=== PATIENT | female | born 1995 | race Caucasian/White ===

== ENCOUNTER 2016-10-13 09:58 | Emergency (ER) | payer MEDICAID ==
[2016-10-13 10:35] LABS: Bilirubin Negative (Negative); Blood, Urine Negative (Negative); Clarity Clear (Clear); Glucose, Urine (Dipstick) Negative (Negative); Leukocyte Negative (Negative); Nitrite Negative (Negative); Protein, Urine (Dipstick) Negative (Neg-Trace); Urobilinogen 0.2 mg/dL (0.2-1.0); pH, Urine 6.5 (5.0-9.0)
== END 2016-10-13 10:46 | disposition home or self-care (01) ==
LOC: BURERS 09:58
DX: J01.90 Acute sinusitis, unspecified (principal); R10.9 Unspecified abdominal pain
CPT/HCPCS: 81003; 87081; 87430; 99283

== ENCOUNTER 2017-06-02 13:11 | Emergency (ER) | payer MEDICAID, OTHER ==
[2017-06-02] MEDS ORDERED: Ondansetron HCl/PF 4 MG/2 ML Vial ONE (13:28)
[2017-06-02 13:34] LABS: #Basophils 0.1 thou/uL (0.0-0.2); #Eosinphils 0.1 thou/uL (0.0-0.7); #Lymphocytes 1.2 thou/uL (1.20-3.40); #Monocytes 0.3 thou/uL (0.11-0.59); #Neutrophils 4.9 thou/uL (1.40-6.50); %Basophils 0.9 % (0.0-1.0); %Eosinophils 1.1 % (0.0-10.0); %Lymphocytes 17.9 % (21.0-51.0); %Monocytes 5.2 % (0.0-10.0); %Neutrophils 74.9 % (42.0-75.0); Hemoglobin 14.8 g/dL (12.0-16.0); Mean Corpuscular HGB CONC 32.3 g/dL (32.0-36.0); Mean Corpuscular Hemoglobin 28.1 pg (27.0-31.0); Mean Platelet Volume 7.9 fL (7.4-10.4); Platelet Count 190 thou/uL (130-400); RBC Distribution Width 11.6 % (11.5-14.5); Red Blood Cell (RBC) Count 5.28 mill/uL (4.20-5.40); White Blood Cell (WBC) Count 6.5 thou/uL (4.8-10.8)
[2017-06-02 13:43] LABS: Bilirubin Small (Negative); Blood, Urine Negative (Negative); Clarity Cloudy (Clear); Glucose, Urine (Dipstick) Negative (Negative); Leukocyte Negative (Negative); Nitrite Negative (Negative); Protein, Urine (Dipstick) Trace mg/dL (Neg-Trace); Specific Gravity, Urine 1.015 (1.005-1.030); Urobilinogen 0.2 mg/dL (0.2-1.0)
[2017-06-02 13:50] LABS: ALT (SGPT) 16 U/L (8-55); AST (SGOT) 19 U/L (5-34); Albumin 4.6 g/dL (3.5-5.0); Alkaline Phosphatase 92 U/L (40-150); Anion Gap 14 mmol/L (10-20); BUN (Urea Nitrogen) 12 mg/dL (7.0-18.7); Bilirubin, Total 0.8 mg/dL (0.2-1.2); Calc. Creatinine Clearance 0 mL/min (70-130); Calcium 9.8 mg/dL (7.8-10.44); Carbon Dioxide 23 mmol/L (22-29); Chloride 108 mmol/L (98-107); Estimated GFR-MDRD Greater than 90; Globulin 3.1 g/dL (2.4-3.5); Glucose 112 mg/dL (70-105); Potassium 3.7 mmol/L (3.5-5.1); Protein, Total 7.7 g/dL (6.0-8.3); Sodium 141 mmol/L (136-145)
[2017-06-02 13:53] LABS: Amphetamine Not Detected (NotDetected); Cocaine Metabolite Screen Not Detected (NotDetected); Methamphetamine Not Detected (NotDetected); Opiate Screen Not Detected (NotDetected); Phencyclidine (PCP) Not Detected (NotDetected); THC/Cannabinoid Screen Detected (NotDetected)
[2017-06-02 13:54] LABS: Barbiturates Screen Not Detected (NotDetected); Benzodiazepine Screen Detected (NotDetected); Medtox Control Line Valid? VALID (VALID); Methadone Not Detected (NotDetected); Oxycodone Screen Not Detected (NotDetected); Tricyclic Screen Not Detected (NotDetected)
== END 2017-06-02 14:10 | disposition home or self-care (01) ==
LOC: BURERS 13:11
DX: K52.9 Noninfective gastroenteritis and colitis, unspecified (principal); G43.909 Migraine, unspecified, not intractable, without status migrainosus
CPT/HCPCS: 80053; 80306; 81003; 85025; 96361; 96374; J2405

== ENCOUNTER 2017-07-06 18:26 | Emergency (ER) | payer MEDICAID, OTHER ==
[2017-07-06 18:48] LABS: Bilirubin Negative (Negative); Blood, Urine Negative (Negative); Clarity Clear (Clear); Glucose, Urine (Dipstick) Negative (Negative); Leukocyte Trace (Negative); Nitrite Negative (Negative); Protein, Urine (Dipstick) Negative (Neg-Trace); Urobilinogen 0.2 mg/dL (0.2-1.0)
[2017-07-06 18:51] LABS: Pregnancy Test - Urine (BHCG) Negative (Negative); Pregu Control Background? CLEAR/WHITE (CLR/WHITE); Pregu Control Bar Appear? YES (CONTROL BAR)
[2017-07-06 18:52] LABS: Bacteria/HPF Rare-Few HPF (None Seen); RBC/HPF 0-3 HPF (0-3); Squamous Epithelial 0-3 HPF (0-3); WBC/HPF 0-3 HPF (0-3)
== END 2017-07-06 19:29 | disposition home or self-care (01) ==
LOC: BURERS 18:26
DX: J11.1 Influenza due to unidentified influenza virus with other respiratory manifestations (principal)
CPT/HCPCS: 81003; 81015; 81025; 99283

== ENCOUNTER 2018-12-23 12:56 | Emergency (ER) | payer OTHER ==
[2018-12-23 13:21] LABS: Clarity Clear (Clear)
[2018-12-23 13:22] LABS: Bilirubin Negative (Negative); Blood, Urine Negative (Negative); Glucose, Urine (Dipstick) Negative (Negative); Leukocyte Negative (Negative); Nitrite Negative (Negative); Pregnancy Test - Urine (BHCG) Negative (Negative); Pregu Control Background? CLEAR/WHITE (CLR/WHITE); Pregu Control Bar Appear? YES (CONTROL BAR); Protein, Urine (Dipstick) Negative (Neg-Trace); Urobilinogen 0.2 mg/dL (Less than 2)
== END 2018-12-23 13:30 | disposition home or self-care (01) ==
LOC: BURERS 12:56
DX: M62.830 Muscle spasm of back (principal)
CPT/HCPCS: 81003; 81025; 99284

== ENCOUNTER 2019-06-09 15:50 | Emergency (ER) | payer OTHER ==
[2019-06-09 16:40] LABS: Bilirubin Negative (Negative); Blood, Urine Negative (Negative); Clarity Clear (Clear); Glucose, Urine (Dipstick) Negative (Negative); Leukocyte Trace (Negative); Nitrite Negative (Negative); Protein, Urine (Dipstick) Negative (Neg-Trace)
[2019-06-09 16:41] LABS: Pregnancy Test - Urine (BHCG) POSITIVE (Negative); Pregu Control Background? CLEAR/WHITE (CLR/WHITE); Pregu Control Bar Appear? YES (CONTROL BAR); Specific Gravity 1.015 (1.002-1.036)
[2019-06-09 16:49] LABS: RBC/HPF None Seen HPF (0-3); Squamous Epithelial 0-3 HPF (0-3); WBC/HPF 0-3 HPF (0-3)
[2019-06-09 16:50] LABS: Bacteria/HPF Rare-Few HPF (None Seen)
[2019-06-09] MEDS ORDERED: Ondansetron ODT 4 MG TAB ONE (17:46)
[2019-06-13 00:38] LABS: Chlamydia by PCR Not Detected (NotDetected); GC by PCR Not Detected (NotDetected)
== END 2019-06-09 17:45 | disposition short-term general hospital (02) ==
LOC: BURERS 15:50
DX: O99.89 Other specified diseases and conditions complicating pregnancy, childbirth and the puerperium (principal); R10.30 Lower abdominal pain, unspecified; Z3A.01 Less than 8 weeks gestation of pregnancy
CPT/HCPCS: 36415; 81003; 81015; 81025; 84702; 87480; 87491; 87510; 87591; 87660; 99284; Q0162

== ENCOUNTER 2020-01-04 21:12 | Emergency (ER) | payer OTHER ==
[2020-01-04] MEDS ORDERED: Ibuprofen 200 MG TAB ONE (21:33)
[2020-01-04] MEDS ORDERED: Ondansetron ODT 4 MG TAB ONE (21:33)
[2020-01-04 21:42] LABS: Bilirubin Negative (Negative); Blood, Urine Large (Negative); Clarity Slightly Cloudy (Clear); Glucose, Urine (Dipstick) Negative (Negative); Ketone, Urine Negative (Negative); Leukocyte Trace (Negative); Nitrite Negative (Negative); Protein, Urine (Dipstick) Negative (Neg-Trace); Urobilinogen 0.2 mg/dL (Less than 2); pH, Urine 5.5 (5.0-9.0)
[2020-01-04 21:48] LABS: Pregnancy Test - Urine (BHCG) Negative (Negative)
[2020-01-04 21:50] LABS: Specific Gravity, Urine 1.024 (1.002-1.036)
[2020-01-04 21:52] LABS: Pregu Control Background? CLEAR/WHITE (CLR/WHITE); Pregu Control Bar Appear? YES (CONTROL BAR); Specific Gravity 1.024 (1.002-1.036)
[2020-01-04 21:57] LABS: Bacteria/HPF 1+ HPF (None Seen)
[2020-01-04] MEDS ORDERED: Dexamethasone 4 MG TAB ONE (22:28)
[2020-01-04] MEDS ORDERED: Cephalexin 250 MG CAP ONE (22:28)
--- NOTE | 2020-01-05 07:02 | RAD ---
CHEST 2 VIEWS: Date: 01/04/2020 Comparison is made with an 04/30/2016 study. The heart is normal in size. There are no major lobar infiltrates or effusions. The mediastinum appea rs normal. IMPRESSION: No acute thoracic finding. POS: HOME
[2020-01-06 11:33] LABS: SARS-CoV-2 MS2 Positive; SARS-CoV-2 N Gene Negative; SARS-CoV-2 S Gene Negative; SARS-CoV-2 by NAA Not Detected (NotDetected); SARS-CoV-2 orf1ab Negative
== END 2020-01-04 22:35 | disposition home or self-care (01) ==
LOC: BURERS 21:12
DX: N30.01 Acute cystitis with hematuria (principal); J02.9 Acute pharyngitis, unspecified; R05 Cough; R11.2 Nausea with vomiting, unspecified; R53.83 Other fatigue; R51 Headache; Z20.828 Contact with and (suspected) exposure to other viral communicable diseases
CPT/HCPCS: 71046; 81003; 81015; 81025; 87081; 87430; 87635; 87804; J8540; Q0162; U0003

== ENCOUNTER 2020-04-02 13:59 | Emergency (ER) | payer OTHER ==
[2020-04-04 10:36] LABS: SARS-CoV-2 MS2 Positive; SARS-CoV-2 N Gene Negative; SARS-CoV-2 S Gene Negative; SARS-CoV-2 by NAA Not Detected (NotDetected); SARS-CoV-2 orf1ab Negative
== END 2020-04-02 15:08 | disposition home or self-care (01) ==
LOC: BURERS 13:59
DX: J06.9 Acute upper respiratory infection, unspecified (principal); Z20.828 Contact with and (suspected) exposure to other viral communicable diseases
CPT/HCPCS: 87635; 87804; 99283; U0003

== ENCOUNTER 2020-08-04 12:40 | Emergency (ER) | payer OTHER ==
[2020-08-04 13:20] LABS: Bilirubin Negative (Negative); Blood, Urine Negative (Negative); Clarity Clear (Clear); Glucose, Urine (Dipstick) Negative (Negative); Ketone, Urine Negative (Negative); Leukocyte Negative (Negative); Nitrite Negative (Negative); Protein, Urine (Dipstick) Negative (Neg-Trace); Specific Gravity, Urine 1.025 (1.005-1.030); Urobilinogen 0.2 mg/dL (Less than 2)
[2020-08-04 13:21] LABS: Pregnancy Test - Urine (BHCG) Negative (Negative)
[2020-08-04 13:22] LABS: Pregu Control Background? CLEAR/WHITE (CLR/WHITE); Pregu Control Bar Appear? YES (CONTROL BAR); Specific Gravity 1.025 (1.002-1.036)
[2020-08-04] MEDS ORDERED: Lidocaine 1% PF 5 ML VIAL ONE (13:32)
[2020-08-04] MEDS ORDERED: cefTRIAXone\\ROCEPHIN 500 MG VIAL ONE (13:32)
== END 2020-08-04 13:37 | disposition home or self-care (01) ==
LOC: BURERS 12:40
DX: N72 Inflammatory disease of cervix uteri (principal)
CPT/HCPCS: 81003; 81025; 87480; 87491; 87510; 87591; 87660; 96372; 99283; J0696

== ENCOUNTER 2020-09-18 01:55 | Emergency (ER) | payer OTHER ==
[2020-09-18] MEDS ORDERED: diphenhydrAMINE 25 MG CAP ONE (02:19)
== END 2020-09-18 02:25 | disposition home or self-care (01) ==
LOC: BURERS 01:55
DX: F41.9 Anxiety disorder, unspecified (principal)
CPT/HCPCS: 99281; Q0163

== ENCOUNTER 2020-10-29 21:31 | Emergency (ER) | payer OTHER ==
[2020-10-29] MEDS ORDERED: Ondansetron ODT 4 MG TAB ONE (21:49)
[2020-10-29 21:50] LABS: Bilirubin Negative (Negative); Blood, Urine Negative (Negative); Clarity Clear (Clear); Glucose, Urine (Dipstick) Negative (Negative); Ketone, Urine Negative (Negative); Leukocyte Negative (Negative); Nitrite Negative (Negative); Protein, Urine (Dipstick) 30 mg/dL (Neg-Trace); Specific Gravity, Urine 1.015 (1.005-1.030); pH, Urine 8.5 (5.0-9.0)
[2020-10-29 21:51] LABS: Bacteria/HPF None Seen HPF (None Seen); Mucous/LPF Rare LPF (<2+); RBC/HPF None Seen HPF (0-3); Squamous Epithelial 0-3 HPF (0-3); WBC/HPF None Seen HPF (0-3)
[2020-10-29 21:58] LABS: Pregnancy Test - Urine (BHCG) Negative (Negative); Pregu Control Background? CLEAR/WHITE (CLR/WHITE); Pregu Control Bar Appear? YES (CONTROL BAR); Specific Gravity 1.015 (1.002-1.036)
[2020-10-29] MEDS ORDERED: traMADol HCl 50 MG TAB ONE (22:34)
[2020-10-29] MEDS ORDERED: Ibuprofen 800 MG TAB ONE (22:34)
== END 2020-10-29 22:39 | disposition home or self-care (01) ==
LOC: BURERS 21:31
DX: M54.5 Low back pain (principal)
CPT/HCPCS: 74176; 81003; 81015; 81025; Q0162

== ENCOUNTER 2021-01-12 10:13 | Emergency (ER) | payer OTHER ==
[2021-01-12] MEDS ORDERED: HYDROcodone/Acetaminophen 5/325 mg Tablet ONE (12:45)
[2021-01-12] MEDS ORDERED: predniSONE 20 MG TAB ONE (12:45)
[2021-01-12 20:56] LABS: SARS-CoV-2 PCR by NAA Not Detected (NotDetected)
== END 2021-01-12 12:52 | disposition home or self-care (01) ==
LOC: BURERS 10:13
DX: B34.9 Viral infection, unspecified (principal); Z20.822 Contact with and (suspected) exposure to COVID-19; Z87.440 Personal history of urinary (tract) infections
CPT/HCPCS: 71046; 87804; J7512; U0003; U0005

== ENCOUNTER 2021-01-19 19:19 | Emergency (ER) | payer OTHER ==
[2021-01-19] MEDS ORDERED: Promethazine 25 MG TAB ONE (20:36)
[2021-01-19 22:07] LABS: #Basophils 0.1 thou/uL (0.0-0.2); #Eosinphils 0.1 thou/uL (0.0-0.7); #Lymphocytes 1.9 thou/uL (1.20-3.40); #Monocytes 0.5 thou/uL (0.11-0.59); #Neutrophils 4.7 thou/uL (1.40-6.50); %Eosinophils 0.9 % (0.0-10.0); %Lymphocytes 26.1 % (21.0-51.0); %Monocytes 7.5 % (0.0-10.0); %Neutrophils 64.5 % (42.0-75.0); Hemoglobin 14.7 g/dL (12.0-16.0); Mean Corpuscular HGB CONC 33.3 g/dL (32.0-36.0); Mean Corpuscular Hemoglobin 28.5 pg (27.0-31.0); Mean Corpuscular Volume 85.6 fL (78.0-98.0); Mean Platelet Volume 8.3 fL (7.4-10.4); Platelet Count 183 thou/uL (130-400); RBC Distribution Width 11.2 % (11.5-14.5); Red Blood Cell (RBC) Count 5.14 mill/uL (4.20-5.40); White Blood Cell (WBC) Count 7.2 thou/uL (4.8-10.8)
[2021-01-19 22:21] LABS: ALT (SGPT) 39 U/L (8-55); AST (SGOT) 29 U/L (5-34); Albumin 4.4 g/dL (3.5-5.0); Alkaline Phosphatase 78 U/L (40-110); Anion Gap 15 mmol/L (10-20); BUN (Urea Nitrogen) 8 mg/dL (7.0-18.7); Bilirubin, Total 0.5 mg/dL (0.2-1.2); Calc. Creatinine Clearance 0 mL/min (70-130); Calcium 9.4 mg/dL (7.8-10.44); Carbon Dioxide 25 mmol/L (22-29); Chloride 104 mmol/L (98-107); Globulin 3.1 g/dL (2.4-3.5); Glucose 89 mg/dL (70-105); Potassium 3.5 mmol/L (3.5-5.1); Protein, Total 7.5 g/dL (6.0-8.3); Sodium 140 mmol/L (136-145)
[2021-01-19 22:29] LABS: Bilirubin Negative (Negative); Blood, Urine Large (Negative); Clarity Clear (Clear); Glucose, Urine (Dipstick) Negative (Negative); Ketone, Urine Negative (Negative); Leukocyte Negative (Negative); Nitrite Negative (Negative); Protein, Urine (Dipstick) Negative (Neg-Trace); Specific Gravity, Urine 1.015 (1.005-1.030); Urobilinogen 0.2 mg/dL (Less than 2); pH, Urine 6.5 (5.0-9.0)
[2021-01-19 22:31] LABS: Pregnancy Test - Urine (BHCG) Negative (Negative); Pregu Control Background? CLEAR/WHITE (CLR/WHITE); Pregu Control Bar Appear? YES (CONTROL BAR); Specific Gravity 1.015 (1.002-1.036)
[2021-01-19 22:45] LABS: WBC/HPF 0-3 HPF (0-3)
== END 2021-01-19 23:08 | disposition home or self-care (01) ==
LOC: BURERS 19:19
DX: R19.7 Diarrhea, unspecified (principal); R11.10 Vomiting, unspecified; R53.1 Weakness
CPT/HCPCS: 36415; 80053; 81003; 81015; 81025; 83605; 85025; 99284; Q0169

== ENCOUNTER 2021-06-27 11:26 | Emergency (ER) | payer OTHER | END 2021-06-27 12:10 | disposition home or self-care (01) | LOC: BURERS 11:26 | DX: R05.9 Cough, unspecified (principal); Z20.822 Contact with and (suspected) exposure to COVID-19 | CPT/HCPCS: 99284 ==

== ENCOUNTER 2021-09-16 10:49 | Emergency (ER) | payer OTHER | END 2021-09-16 12:07 | disposition home or self-care (01) | LOC: BURERS 10:49 | DX: J10.1 Influenza due to other identified influenza virus with other respiratory manifestations (principal) | CPT/HCPCS: 87804; 99283 ==

== ENCOUNTER 2021-12-27 12:16 | Emergency (ER) | payer OTHER ==
[2021-12-27 12:57] LABS: Pregnancy Test - Urine (BHCG) Negative (Negative); Pregu Control Background? CLEAR/WHITE (CLR/WHITE); Pregu Control Bar Appear? YES (CONTROL BAR)
[2021-12-27] MEDS ORDERED: Ondansetron ODT 4 MG TAB ONE (13:01)
== END 2021-12-27 13:24 | disposition home or self-care (01) ==
LOC: BURERS 12:16
DX: A08.4 Viral intestinal infection, unspecified (principal); J02.9 Acute pharyngitis, unspecified
CPT/HCPCS: 81025; 87081; 87430; Q0162

== ENCOUNTER 2022-02-18 23:39 | Emergency (ER) | payer OTHER ==
[2022-02-19] MEDS ORDERED: Cephalexin 250 MG CAP ONE (00:05)
== END 2022-02-19 00:05 | disposition home or self-care (01) ==
LOC: BURERS 23:39
DX: L03.317 Cellulitis of buttock (principal); Z20.822 Contact with and (suspected) exposure to COVID-19
CPT/HCPCS: 99283; U0003; U0005

== ENCOUNTER 2022-08-16 14:36 | Emergency (ER) | payer OTHER | END 2022-08-16 15:59 | disposition home or self-care (01) | LOC: BURERS 14:36 | DX: J06.9 Acute upper respiratory infection, unspecified (principal) | CPT/HCPCS: 99283 ==

== ENCOUNTER 2022-09-06 11:06 | Emergency (ER) | payer OTHER ==
[2022-09-06 12:25] LABS: #Basophils 0.1 thou/uL (0.0-0.2); #Eosinphils 0.3 thou/uL (0.0-0.7); #Lymphocytes 1.5 thou/uL (1.20-3.40); #Monocytes 0.5 thou/uL (0.11-0.59); %Basophils 1.1 % (0.0-1.0); %Eosinophils 3.6 % (0.0-10.0); %Lymphocytes 17.7 % (21.0-51.0); %Monocytes 5.7 % (0.0-10.0); Hemoglobin 13.9 g/dL (12.0-16.0); Mean Corpuscular Hemoglobin 28.8 pg (27.0-31.0); Mean Corpuscular Volume 87.3 fl (78.0-98.0); Mean Platelet Volume 9.3 fL (7.4-10.4); Platelet Count 169 10x3/uL (130-400); RBC Distribution Width 11.3 % (11.5-14.5); Red Blood Cell (RBC) Count 4.84 mill/uL (4.20-5.40); White Blood Cell (WBC) Count 8.4 10x3/uL (4.8-10.8)
[2022-09-06 12:39] LABS: Bilirubin Negative (Negative); Blood, Urine Negative (Negative); Clarity Clear (Clear); Glucose, Urine (Dipstick) Negative (Negative); Ketone, Urine Negative (Negative); Leukocyte Negative (Negative); Nitrite Negative (Negative); Protein, Urine (Dipstick) Negative (Neg-Trace); Specific Gravity, Urine 1.025 (1.005-1.030); Urobilinogen 0.2 mg/dL (Less than 2); pH, Urine 5.5 (5.0-9.0)
[2022-09-06 12:40] LABS: ALT (SGPT) 22 U/L (8-55); AST (SGOT) 20 U/L (5-34); Albumin 4.3 g/dL (3.5-5.0); Alkaline Phosphatase 72 U/L (40-110); Anion Gap 11 mmol/L (10-20); BUN (Urea Nitrogen) 9 mg/dL (7.0-18.7); Bilirubin, Total 0.7 mg/dL (0.2-1.2); Calc. Creatinine Clearance 0 mL/min (70-130); Calcium 9.5 mg/dL (7.8-10.44); Carbon Dioxide 24 mmol/L (22-29); Chloride 107 mmol/L (98-107); Estimated GFR 114; Globulin 3.3 g/dL (2.4-3.5); Glucose 88 mg/dL (70-105); Lipase 24 U/L (8-78); Potassium 4.1 mmol/L (3.5-5.1); Protein, Total 7.6 g/dL (6.0-8.3); Sodium 138 mmol/L (136-145)
[2022-09-06 13:19] LABS: Pregnancy Test - Urine (BHCG) Negative (Negative); Pregu Control Background? CLEAR/WHITE (CLR/WHITE); Pregu Control Bar Appear? YES (CONTROL BAR); Specific Gravity 1.025 (1.002-1.036)
== END 2022-09-06 13:35 | disposition home or self-care (01) ==
LOC: BURERS 11:06
DX: B34.9 Viral infection, unspecified (principal); J22 Unspecified acute lower respiratory infection
CPT/HCPCS: 36415; 71045; 80053; 81003; 81025; 83605; 83690; 85025; 87081; 87430; 87804; 93005

== ENCOUNTER 2023-04-22 23:55 | Emergency (ER) | payer OTHER ==
[2023-04-23] MEDS ORDERED: Ketorolac Tromethamine 30 MG/ML VIAL ONE (00:30)
== END 2023-04-23 01:10 | disposition home or self-care (01) ==
LOC: BURERS 23:55
DX: S30.0XXA Contusion of lower back and pelvis, initial encounter (principal); S40.011A Contusion of right shoulder, initial encounter; W13.0XXA Fall from, out of or through balcony, initial encounter
CPT/HCPCS: 71046; 72072; 96372; J1885

== ENCOUNTER 2023-05-01 14:21 | Emergency (ER) | payer OTHER ==
[2023-05-01 14:53] LABS: Bilirubin Small (Negative); Blood, Urine Negative (Negative); Clarity Slightly Cloudy (Clear); Glucose, Urine (Dipstick) Negative (Negative); Ketone, Urine Negative (Negative); Leukocyte Large (Negative); Nitrite Negative (Negative); Protein, Urine (Dipstick) Negative (Neg-Trace); Specific Gravity, Urine 1.025 (1.005-1.030); Urobilinogen > or = 8.0 mg/dL (Less than 2); pH, Urine 5.5 (5.0-9.0)
[2023-05-01 14:54] LABS: Pregnancy Test - Urine (BHCG) Negative (Negative)
[2023-05-01 14:55] LABS: Pregu Control Background? CLEAR/WHITE (CLR/WHITE); Pregu Control Bar Appear? YES (CONTROL BAR); Specific Gravity 1.025 (1.002-1.036)
[2023-05-01 15:08] LABS: Bacteria/HPF 2+ HPF (None Seen); CAUTI Indications for Culture Dysuria,urgency,freq; RBC/HPF 0-3 HPF (0-3)
[2023-05-01 15:09] LABS: Mucous/LPF Few LPF (<2+); Urine Culture Reflex Yes Yes
[2023-05-01] MEDS ORDERED: cefTRIAXone (ROCEPHIN) 500 MG VIAL ONE (15:23)
[2023-05-01] MEDS ORDERED: Sterile Water 10 ML ONE (15:23)
[2023-05-02 07:27] LABS: Chlamydia by PCR, Vaginal Swab Not Detected (NotDetected); GC by PCR, Vaginal Swab Not Detected (NotDetected)
[2023-05-02 07:27] LABS: Chlam.trachomatis by PCR,Urine Not Detected (NotDetected); GC N.gonorrhoeae PCR,UrineVOID Not Detected (NotDetected)
== END 2023-05-01 15:45 | disposition home or self-care (01) ==
LOC: BURERS 14:21
DX: N76.0 Acute vaginitis (principal); N39.0 Urinary tract infection, site not specified
CPT/HCPCS: 81001; 81025; 87086; 87491; 87591; 96372; 99283; J0696

== ENCOUNTER 2024-03-28 08:18 | Emergency (ER) | payer OTHER ==
[2024-03-28] MEDS ORDERED: Fluorescein Opthalmic Strip ONE (08:23)
[2024-03-28] MEDS ORDERED: Tetracaine 0.5% PF 4 ML BOT ONE (08:23)
== END 2024-03-28 09:27 | disposition home or self-care (01) ==
LOC: BURERS 08:18
DX: S05.01XA Injury of conjunctiva and corneal abrasion without foreign body, right eye, initial encounter (principal); X58.XXXA Exposure to other specified factors, initial encounter
CPT/HCPCS: 99283